=== PATIENT | female | born 1975 | race African-American/Black ===

== ENCOUNTER 2016-06-12 17:17 | Inpatient (IN) | payer BC ==
--- NOTE | ~2016-06-12 | PA ---
Unit #: [id number] #: [id number] Patient: JOLLY RICHARD [id number] [place] [address] [id number] I MR#: [id number] NAME: JOLLY RICHARD. ROOM: P257 Age: 40 Sex: F Admission Date: 06/12/2016 : 1975 Date of Assessment: Attending Physician: Hang Spears M.D. Admitting Physician: Hang Spears M.D. Primary Care Physician: Tiffany Diego M.D. PSYCHIATRIC ASSESSMENT JOB NOTE: VERIFY DATE OF SERVICE. LOCATION [facility] [address], room #257, bed #1. INFORMANTS The patient and chart, chart seems to be reliable as does the patient. CHIEF COMPLAINT "I'm not sure why I'm here." HISTORY OF PRESENT ILLNESS This is a 40-year-old female transferred from [facility] for issues with intentional suicide attempt by overdose. The patient apparently had taken 10 Klonopin, 2 Flexeril, and 2 melatonin in an attempt to "not wake up." Apparently in the ER there, she had told them that in a somewhat somnolent manner that she took the medicine not wanting to wake up, they were all be better of without her. She would not argue with her daughter anymore. These were all direct quotes. On interview today, the patient still seems very dysphoric, but denies any active SI and apparently denied any since being admitted to the hospital, and the discussion we had with her after she was admitted on the evening of 06/12/2016 and when she was demanding to leave and was instructed to her that given the gravity of the situation that she would not be able to go until she was evaluated and she was already on involuntary hold, so it is a moot point at that time. On interview today, the patient is much more amenable, much calmer. She and I discussed at length the gravity of the situation and the nature of it. She claims to have little memory of the event in question. She does admit that there is quite a bit of stress at home, primarily having to do with a daughter who seems to have great behavioral issues that seems to be a chronic problem for the patient per the chart. She denied any active SI now. She was fairly calm and appropriate with good eye contact. She was seen outpatient by Dr. Harvey and reports her medications have been fairly stable. 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 Apparently, her boyfriend was the one who brought her to the hospital and who was concerned that she would not wake up after having taken the pills and apparently did not appear safe at that time to take her home. Since then, the staff has contacted him this morning and he now says that he feels safe with the patient going home and that would be the best thing for her, for which we are all in agreement at this time. PAST FAMILY PSYCHIATRIC HISTORY Unit #: [id number] #: [id number] Patient: JOLLY RICHARD As noted above, seen previously also by Dr. Marisa Sheridan, admitted to psychiatric facilities in the distant past and has a history of depression, major depressive issues with suicidal ideations and thoughts. No issues with HI or psychosis. FAMILY HISTORY Perhaps a brother with mood issues. The patient is not certain beyond that, noncontributory. SOCIAL HISTORY The patient has a significant other with a boyfriend and has children, one daughter in particular lives at home is a stress point as noted above. 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 MEDICAL HISTORY Significant for hypothyroidism as well as issue of migraines. ALLERGIES Include NSAIDs. HOME MEDICATIONS Include melatonin 5 mg at bedtime, Lexapro 5 mg in the morning, and Synthroid 0.125 mg daily by mouth. SUBSTANCE ABUSE HISTORY Nothing contributory at this time. MENTAL STATUS EXAMINATION General appearance; she is a moderately groomed female, fairly cooperative, responsive to the interview process with good eye contact. Speech was clear and coherent. Mood was somewhat irritable, but improved, dysphoric with a constricted affect. Thought process and content were grossly organized and linear. No overt evidence of psychosis. The patient denied any active SI or HI. The patient's memory was grossly intact with the exception of the event in question. She is alert and oriented x4. Cognitive function was at baseline. Associations were normal. Insight and judgment improving. ASSETS AND LIABILITIES Assets include support through family and outpatient psychiatric care. Liabilities include previous history of depression and suicidal ideation. ADMITTING DIAGNOSES 1. Major depressive disorder, recurrent, severe, without psychotic features. 2. Hypothyroidism. 3. Migraines. PSYCHIATRIC PLAN Most likely, we will discharge the patient home today. Continuing with her home medications and following up Dr. Harvey can be scheduled. The patient appears to have been what maybe more of a gesture move than an actual suicide attempt. Given her history of as being a nurse, her attempt seems less than potentially lethal and will be more of a cry for help given the gravity of stress at home regardless. She is denying any SI now or anything of this nature and has a home with family. Followup care on outpatient with Dr. Havrey. She recently maintained hospitalization. At this time, we will discontinue hold and Unit #: [id number] #: [id number] Patient: JOLLY RICHARD discharge the patient home with family. The patient will be discharged today. Dictated by... Megan Diamond/caron TD: 06/14/2016 02:29 JOB #: [id number] PSYCHIATRIC ASSESSMENT Page 1 of 1 X Hang Spears MD X PSYCHIATRIC ASSESSMENT
--- NOTE | ~2016-06-12 | HP ---
Unit #: [id number] #: [id number] Patient: JOLLY RICHARD [id number] [place] [address] [id number] I MR#: [id number] NAME: JOLLY RICHARD. ROOM: P257 Age: 40 Sex: F Admission Date: 06/12/2016 : 1975 Attending Physician: Hang Spears M.D. Admitting Physician: Hang Spears M.D. Primary Care Physician: Tiffany Diego M.D. HISTORY AND PHYSICAL HISTORY OF PRESENT ILLNESS Jolly is a 40 year old admitted to [address] [place] [address] after polypharmacy overdose of Klonopin, melatonin and Flexeril. She is belligerent and uncooperative so her history is taken from her chart and exam is limited. PAST MEDICAL HISTORY 1. History of migraines 2. Hypothyroidism PAST SURGICAL HISTORY Gastric sleeve. ALLERGIES NSAIDS SOCIAL HISTORY She does not smoke, drinks alcohol on occasion and denies illicit drug use. FAMILY HISTORY Medically noncontributory. REVIEW OF SYSTEMS CONSTITUTIONAL: No fever or chills. HEENT: Denies any sore throat, ear pain or runny nose. CARDIOVASCULAR: Denies chest pain, irregular heart rhythm or palpitations. CHEST: Denies shortness of breath or cough. No hemoptysis. GASTROINTESTINAL: Denies nausea, vomiting, diarrhea or chronic constipation. ENDOCRINE: Denies history of increased thirst or urination. No recent significant weight loss or gain. GENITOURINARY: Denies dysuria, frequency, or hematuria. SKIN: Denies any rashes. HEMATOLOGIC: Denies history of increased bleeding or bruising. MUSCULOSKELETAL: Denies any hot, swollen joints. No generalized muscle pain. NEUROLOGIC: Denies problems with vision or speech. No frequent, severe headaches. No numbness, tingling or weakness in any extremities. Denies loss of bladder or bowel control. CURRENT MEDICATIONS Unit #: [id number] #: [id number] Patient: JOLLY RICHARD No orders received at the time of this dictation. PHYSICAL EXAMINATION GENERAL: Alert, thin, in no apparent distress. VITAL SIGNS: Blood pressure 106/60, heart rate 46, respirations 16, temperature 98.6. SKIN: The patient refuses. HEENT: The patient refuses. NECK: The patient refuses. HEART: Rate and rhythm is regular. LUNGS: The patient refuses. ABDOMEN: The patient refuses. : The patient refuses. EXTREMITIES: The patient refuses. NEUROLOGICAL: The patient refuses. IMPRESSION Psychiatric admission RECOMMENDATIONS PSYCHIATRIC: Per psychiatrist. MEDICAL: I see no contraindications to participating in facility's activities. MEDICAL PROGNOSIS Good. MEDICAL CONDITION Stable. Dictated by... Ayla Allen P.A.-C. for Megan Artis/marlen TD: 06/12/2016 22:12 JOB #: [id number] HISTORY AND PHYSICAL Page 1 of 1 X Ayla Allen PA X HISTORY AND PHYSICAL
--- NOTE | ~2016-06-12 | DS ---
Unit #: [id number] #: [id number] Patient: JOLLY RICHARD [id number] [place] [address] [id number] I MR#: [id number] NAME: JOLLY RICHARD. ROOM: P257 Age: 40 Sex: F Admission Date: 06/12/2016 : 1975 Discharge Date: 06/13/2016 Attending Physician: Hang Spears M.D. Primary Care Physician: Tiffany Diego M.D. DISCHARGE SUMMARY REASON FOR ADMISSION Overdose. DIAGNOSTIC STUDIES The patient had routine blood work which included a CMP that was grossly within normal parameters without exception. Beta HCG that was negative. CBC that was also within normal parameters without exception. No other tests performed at this time. No other tests available at this time. HOSPITAL COURSE The patient was admitted for safety and stabilization on 72 hour hold for intentional overdose of medications from [facility] emergency room. The patient had been maintained on her home medications that included, Lexapro and Synthroid, as well as melatonin for sleep. The patient began denying suicidal ideation from the moment she was admitted to the hospital. 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 This may have been more of a gesture issue than an actual suicide attempt but regardless the patient's mood rapidly improved in terms of giving one of irritable and hostile upon admitting to much calmer and appropriate with still some mild irritability noted, but overall improved. The patient was denying any SI or HI at the time of discharge. This seemed to be a stress reaction as much as anything else. She had a safe disposition home with her boyfriend who was contacted by staff who agreed, he felt more appropriate for the patient to be at home with him and monitor it there as well as being able to better help with her stress management with her daughter. Overall, it is felt the patient's situation would best be benefitted on outpatient treatment regime to be sent home with her significant other and followup care with Dr. Harvey, her outpatient psychiatrist. The patient was in agreement with the plan and the patient was discharged home with no acute changes otherwise noted. DISCHARGE DIAGNOSES Trinity I Major depressive disorder, recurrent, severe without psychotic features. Trinity II Trinity III Hypothyroidism. History of migraines. Status post overdose. Trinity IV Trinity V Unit #: [id number] #: [id number] Patient: JOLLY RICHARD INSTRUCTIONS TO THE PATIENT Include follow up with Dr. Harvey as soon as possible. DISCHARGE MEDICATIONS Include: 1. Lexapro 5 mg daily by mouth 2. Melatonin 5 mg at nighttime by mouth 3. Synthroid 0.125 mg every morning by mouth CONDITION AT DISCHARGE Somewhat improved, close to baseline. PROGNOSIS Moderate given the continued stress at home and little change in management style. DIET AND ACTIVITY Diet is regular and activity is as tolerated. Dictated by... Hang Spears M.D. NOEMÍ/leopoldo TD: 06/13/2016 12:08 JOB #: [id number] DISCHARGE SUMMARY Page 1 of 1 X Hang Spears MD X DISCHARGE SUMMARY
[2016-06-13 09:47] LABS: BASOPHIL% 0.4 % (0-2.5); EOSINOPHIL# 0.1 X10e3 (0-0.7); EOSINOPHIL% 1.1 % (0.0-7.0); HEMATOCRIT 37.5 % (35.0-45.0); HEMOGLOBIN 12.2 gm/dL (12.0-16.0); LYMPHOCYTE# 1.9 X10e3 (1.0-3.5); MEAN CELL VOLUME 93.8 FL (83-96); MEAN CORPUSCULAR HEMOGLOBIN 30.6 PG (28-34); MEAN CORPUSCULAR HGB CONC 32.6 g/dL (30-36); MEAN PLATELET VOLUME 10.1 FL (6.5-11.5); MONOCYTE# 0.4 X10e3 (0-1.0); MONOCYTE% 8.6 % (3.0-12.0); NEUTROPHIL# 2.4 X10e3 (1.5-7.1); NEUTROPHIL% 50.9 % (40-75); PLATELET COUNT 155 X10e3 (140-420); RED CELL DISTRIBUTION WIDTH 12.9 % (11.0-15.5); WHITE BLOOD COUNT 4.8 X10e3 (4.0-10.5)
[2016-06-13 09:56] LABS: DIFF IND NO
[2016-06-13 10:06] LABS: ALBUMIN SERUM 3.8 g/dL (3.5-5.0); BUN/CREATININE RATIO 18.75; CALCIUM SERUM 8.7 mg/dL (8.4-10.2); CREATININE SERUM 0.8 mg/dL (0.6-1.4); GLOM FILT RATE Estimated 107.7 mL/min (>60); POTASSIUM 3.7 mmol/L (3.5-5.1); PROTEIN TOTAL SERUM 6.3 g/dL (6.0-8.3)
== END 2016-06-13 13:00 | disposition home or self-care (01) | DRG 885 ==
LOC: P2L 17:17
PROVIDERS: Psychiatry & Neurology Psychiatry
DX: F33.2 Major depressive disorder, recurrent severe without psychotic features (principal); E03.9 Hypothyroidism, unspecified; G43.909 Migraine, unspecified, not intractable, without status migrainosus
CPT/HCPCS: 80053; 84703; 85025

== ENCOUNTER 2016-09-27 02:01 | Emergency (ER) | payer BC ==
--- NOTE | ~2016-09-27 | EKG ---
PATIENT: JOLLY RICHARD UNIT #: [id number] Ventricular Rate: 45 BPM Atrial Rate: 45 BPM P-R Interval: 140 ms QRS Duration: 80 ms Q-T Interval: 456 ms QTC Calculation(Bezet): 394 ms P Huron: 73 degrees Calculated R Huron: 51 degrees Calculated T Huron: 33 degrees Diagnosis Line: Sinus bradycardia with sinus arrhythmia Diagnosis Line: Otherwise normal ECG Diagnosis Line: When compared with ECG of 21-OCT-2013 08:31, Diagnosis Line: No significant change was found Diagnosis Line: Confirmed by TOMMY NORIEGA MD ([id number]) on 09/27/2016 Diagnosis Line: 7:41:45 PM INTERPRETING MD: LEANN GONZALEZ
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
== END 2016-09-27 04:37 | disposition home or self-care (01) ==
LOC: CED 02:01
DX: S20.212A Contusion of left front wall of thorax, initial encounter (principal); K21.9 Gastro-esophageal reflux disease without esophagitis; Z88.6 Allergy status to analgesic agent; V49.9XXA Car occupant (driver) (passenger) injured in unspecified traffic accident, initial encounter; Y92.410 Unspecified street and highway as the place of occurrence of the external cause
CPT/HCPCS: 71020; 93005; 99285